=== PATIENT | female | born 1955 ===

== ENCOUNTER 2018-10-22 07:50 | Day surgery (SDC) | payer OTHER | END 2018-10-22 13:10 | disposition home or self-care (01) | LOC: AMB-ENDOS 07:50 | DX: K64.8 Other hemorrhoids (principal) ==

== ENCOUNTER 2020-10-26 08:28 | Day surgery (SDC) | payer OTHER | END 2020-10-26 12:35 | disposition home or self-care (01) | LOC: AMB-ENDOS 08:28 | PROVIDERS: ATTEND Colon & Rectal Surgery | DX: D12.8 Benign neoplasm of rectum (principal); K64.8 Other hemorrhoids; Z20.822 Contact with and (suspected) exposure to COVID-19; Z12.11 Encounter for screening for malignant neoplasm of colon ==